=== PATIENT | female | born 1950 | race Caucasian/White ===

== ENCOUNTER 2020-07-12 09:06 | Outpatient (CLI) | payer MEDICARE, BC | END 2020-07-12 09:07 | disposition home or self-care (01) | LOC: COV 09:06 | PROVIDERS: ATTEND Family Medicine | DX: Z20.828 Contact with and (suspected) exposure to other viral communicable diseases (principal) ==

== ENCOUNTER 2021-06-27 08:34 | Outpatient (CLI) | payer MEDICARE, BC ==
--- NOTE | 2021-06-27 09:02 | XRAY Report ---
PROCEDURE: Shoulder 3 View RT INDICATIONS: RIGHT SHOULDER PAIN TECHNIQUE: 3 views of the shoulder were acquired. COMPARISON: None. FINDINGS: Bones: No fractures or dislocations. No suspicious bony lesions. Visualized ribs appear intact. J oint space narrowing and periarticular osteophyte formation at the acromioclavicular and glenohumeral joints, indicating osteoarthritis. Well-corticated bony fragment projects over the inferior aspect o f the glenohumeral joint. Soft tissues: No suspicious soft tissue calcifications. IMPRESSION: 1. Acromioclavicular and glenohumeral joint osteoarthritis. 2. Findings suggestive of an intra-articular loose body. This could be further assessed with MRI arth rography, if clinically indicated. 3. No acute fracture. No osseous lesion. If symptoms and/or clinical suspicion for pathology continue , further assessment with repeat plain films, or advanced imaging (e.g., CT, MRI, or bone scan) is re commended for further assessment. Reviewed by: Honorio Reyes MD on 06/27/2021 9:01 AM PDT Approved by: Honorio Reyes MD on 06/27/2021 9:01 AM PDT Station ID: [id number]
== END 2021-06-27 23:59 | disposition home or self-care (01) ==
LOC: DI.S 08:34
PROVIDERS: ATTEND Physician Assistant Medical
DX: M19.011 Primary osteoarthritis, right shoulder (principal)

== ENCOUNTER 2021-07-06 08:17 | Outpatient (CLI) | payer MEDICARE, BC | END 2021-07-06 08:18 | disposition critical access hospital (66) | LOC: EMS 08:17 | DX: R10.9 Unspecified abdominal pain (principal); R11.0 Nausea; R06.02 Shortness of breath | CPT/HCPCS: A0425; A0427 ==

== ENCOUNTER 2021-07-06 08:51 | Emergency (ER) | payer MEDICARE, BC ==
[2021-07-06] MEDS ORDERED: MAG HYDROX/AL HYDROX/SIMETH 30 ML UDC PO STA (09:03)
[2021-07-06] MEDS ORDERED: LIDOCAINE VISCOUS 2% 15 ML UDC MM STA (09:03)
[2021-07-06] MEDS ORDERED: HYDROmorphone 1 MG/ML CARPUJECT IVP STA (09:03)
--- NOTE | 2021-07-06 09:04 | ED Physician Documentation ---
PD HPI ABD PAIN - Stated complaint Stated Complaint: ABD PX - Chief complaint Chief Complaint: Abd Pain - History obtained from History obtained from: Patient - History of Present Illness Timing - onset: How many hours ago (3), Today Timing - duration: Hours (3) Timing - details: Abrupt onset, Still present Quality: Cramping, Aching, Pain Location: RUQ, Epigastric Radiation: Upper back. No: Left flank, Right flank Associated symptoms: Nausea. No: Fever, Vomiting, Diarrhea Similar symptoms before: Has not had sx before Recently seen: Not recently seen Review of Systems Constitutional: denies: Fever, Chills Nose: denies: Rhinorrhea / runny nose, Congestion Throat: denies: Sore throat Respiratory: denies: Cough GI: reports: Abdominal Pain, Nausea. denies: Vomiting, Diarrhea Musculoskeletal: denies: Neck pain, Back pain PD PAST MEDICAL HISTORY - Past Medical History Cardiovascular: None GI: Other (esophageal irritation during DUNG for ablation. ) - Present Medications Home Medications: Ambulatory Orders Medication Instructions Recorded Confirmed Alendronate [Fosamax] 70 mg PO Q7D 07/06/21 07/06/21 Apixaban [Eliquis] 5 mg PO BID 07/06/21 07/06/21 FLUoxetine [PROzac] 5 mg PO DAILY 07/06/21 07/06/21 Lidocaine Viscous 2% [Xylocaine 5 ml PO Q4H PRN #100 ml 07/06/21 Viscous 2%] Metoprolol Succinate [Kapspargo 25 mg PO DAILY 07/06/21 07/06/21 Sprinkle] Omeprazole [PriLOSEC] 20 mg PO DAILY 30 Days #30 cap 07/06/21 Zolpidem Tartrate [Ambien] 10 mg PO HS PRN 07/06/21 07/06/21 - Allergies Allergies/Adverse Reactions: Allergies Allergy/AdvReac Type Severity Reaction Status Date / Time No Known Drug Allergies Allergy Verified 07/06/21 09:04 PD ED PE NORMAL - Vitals Vital signs reviewed: Yes - General General: Alert and oriented X 3, No acute distress, Well developed/nourished - HEENT HEENT: Moist mucous membranes, Pharynx benign - Neck Neck: Supple, no meningeal sign, No adenopathy - Cardiac Cardiac: RRR, No murmur - Respiratory Respiratory: Clear bilaterally - Abdomen Abdomen: Normal bowel sounds, Soft, Non distended, No organomegaly, Other (tender epigastric area without guarding nor percussion tender. ) - Derm Derm: Normal color, Warm and dry - Neuro Neuro: Alert and oriented X 3, No motor deficit, Normal speech Results - Vitals Vitals: Oxygen O2 Source Room air - Labs Labs: Laboratory Tests 07/06/21 07/06/21 09:15 09:15 WBC 7.9 RBC 4.07 L Hgb 12.9 Hct 38.1 MCV 93.6 MCH 31.7 H MCHC 33.9 RDW 12.6 Plt Count 279 MPV 9.3 Neut # (Auto) 6.3 Lymph # (Auto) 1.0 L [place] # (Auto) 0.5 Eos # (Auto) 0.1 Baso # (Auto) 0.0 Absolute Nucleated RBC 0.00 Nucleated RBC % 0.0 Sodium 131 L Potassium 4.2 Chloride 97 L Carbon Dioxide 24 Anion Gap 10.0 BUN 15 Creatinine 0.4 Estimated GFR (MDRD) 157 Glucose 110 H Calcium 9.5 Total Bilirubin 1.5 H AST 148 H ALT 72 H Alkaline Phosphatase 68 Total Protein 6.8 Albumin 4.2 Globulin 2.6 Albumin/Globulin Ratio 1.6 Lipase 35 - Rads (name of study) abd U/S Radiology: Prelim report reviewed (normal gallbladder and RUQ U/S), See rad report PD MEDICAL DECISION MAKING - ED course Complexity details: re-evaluated patient (improved quite well with GI cocktail.), considered differential, d/w patient Departure - Departure Disposition: 01 Home, Self Care Clinical Impression: Acute upper abdominal pain Gastritis Qualifiers: Gastritis type: unspecified gastritis Chronicity: acute Gastritis bleeding: without bleeding Qualified Code(s): K29.00 - Acute gastritis without bleeding Condition: Stable Record reviewed to determine appropriate education?: Yes Instructions: ED Gastritis Follow-Up: ELMER MELARA MD [Primary Care Provider] - Prescriptions: Omeprazole [PriLOSEC] 20 mg PO DAILY 30 Days #30 cap Lidocaine Viscous 2% [Xylocaine Viscous 2%] 5 ml PO Q4H PRN #100 ml PRN Reason: Pain Comments: This does sound most likely to be an irritation of the stomach (gastritis). I would resume your Prilosec daily for at least a month more likely two. Consider some antacids such as Maalox or Mylanta a few times daily for the next few days. Use it as needed for stomach pains and you can add the lidocaine to it if needed as well. Your ultrasound showed some gallstones but no signs of acute inflammation of the gallbladder. Your common bile duct was slightly elevated though no stones seen in it. Of another possibility for your pain episode today was some sludging or temporary blockage of the bile duct. Also consider gallbladder spasm. However the gastritis seems the most likely given the resolution of it with the "GI cocktail". Follow-up with your primary care if recurrent episodes despite the medications. Tylenol if needed for mild pains. Return to the ER if significantly worse again. Discharge Date/Time: 07/06/21 11:11
[2021-07-06 09:30] LABS: BASOPHILS % (AUTO) 0.4 %; EOSINOPHILS # (AUTO) 0.1 10^3/uL (0.0-0.7); EOSINOPHILS % (AUTO) 0.9 %; HCT - HEMATOCRIT 38.1 % (37.0-47.0); HGB - HEMOGLOBIN 12.9 g/dL (12.0-16.0); LYMPHOCYTES % (AUTO) 12.4 %; MEAN CORPUSCULAR HEMOGLOBIN 31.7 pg (27.0-31.0); MEAN CORPUSCULAR HGB CONC 33.9 g/dL (32.0-36.0); MEAN CORPUSCULAR VOLUME 93.6 fL (81.0-99.0); MEAN PLATELET VOLUME 9.3 fL (7.9-10.8); MONOCYTES # (AUTO) 0.5 10^3/uL (0.0-1.0); MONOCYTES % (AUTO) 6.1 %; NEUTROPHILS # (AUTO) 6.3 10^3/uL (1.5-6.6); NEUTROPHILS % (AUTO) 79.8 %; PLT - PLATELET COUNT 279 10^3/uL (130-450); RED BLOOD COUNT 4.07 10^6/uL (4.20-5.40); RED CELL DISTRIBUTION WIDTH 12.6 % (12.0-15.0); WHITE BLOOD COUNT 7.9 x10^3/uL (4.8-10.8)
[2021-07-06 09:41] LABS: ALBUMIN 4.2 g/dL (3.2-5.5); ALBUMIN/GLOBULIN RATIO 1.6 (1.0-2.2); BILIRUBIN,TOTAL 1.5 mg/dL (0.2-1.0); CALCIUM 9.5 mg/dL (8.5-10.3); CREATININE 0.4 mg/dL (0.4-1.0); POTASSIUM 4.2 mmol/L (3.5-5.0); TOTAL PROTEIN 6.8 g/dL (6.7-8.2)
--- NOTE | 2021-07-06 10:36 | Ultrasound Report ---
PROCEDURE: Abdomen Limited INDICATIONS: RUQ/epigastric pain this morning TECHNIQUE: Real-time scanning was performed of the abdominal and retroperitoneal organs, with image documentatio n. COMPARISON: None. FINDINGS: Liver: Liver is normal in size and with hepatic steatosis. Gallbladder: Gallbladder demonstrates multiple areas of increased echogenicity. Wall thickness is wit hin normal limits measuring 2.1 cm. Biliary ducts: Intrahepatic bile ducts are non-dilated. Extrahepatic bile duct caliber measures 10. 8 mm. Normal is 6-7 mm or less in diameter, or 10 mm or less post-cholecystectomy. No stone is iden tified. Pancreas: Visualized portions of the pancreas are sonographically normal. Kidneys: Right kidney measures 10.6 cm long. No hydronephrosis or nephrolithiasis. No solid masses . IMPRESSION: 1. Cholelithiasis without wall thickening. 2. Mild prominence of the common bile duct, overall nonspecific. No obstructing stone is identified. However, if this remains of concern, MRCP is recommended. Reviewed by: Genet Castorena MD on 07/06/2021 10:34 AM PDT Approved by: Genet Castorena MD on 07/06/2021 10:34 AM PDT Station ID: [id number]
[2021-07-06 11:11] VITALS: BP 123/78
== END 2021-07-06 11:11 | disposition home or self-care (01) ==
LOC: EDBD → ED 08:51 → MERGE 08:51 → ED 11:11
DX: K29.00 Acute gastritis without bleeding (principal)
CPT/HCPCS: 36415; 76705; 80053; 83690; 85025; 96374; 99284; A9270; J1170

== ENCOUNTER 2024-04-13 13:59 | Emergency (ER) | payer MEDICARE, BC ==
[2024-04-13] MEDS ORDERED: LIDOCAINE 1%-EPI 1:100000 20 ML MDV ONE (14:11)
[2024-04-13 14:14] VITALS: O2SAT 98
[2024-04-13] MEDS: LIDOCAINE 1%-EPI 1:100000 20 ML MDV SUBQ STA (14:22)
[2024-04-13] MEDS: BACITRACIN ZINC OINT 1 PACKET TOP STA (15:03)
--- NOTE | 2024-04-13 15:12 | ED Physician Documentation ---
History of Present Illness - Stated complaint Stated Complaint: NOSEBLEED - Chief complaint Chief Complaint: Wound - History obtained from History obtained from: Patient - History of Present Illness Timing: Today Pain level max: 0 Pain level now: 0 - Additonal information Additional information: Patient is a 73-year-old female who presents to the emergency department with bleeding from a wound on the face. 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 She had this performed in [place]. She lives in [place]. Today she stated that the wound opened and started bleeding profusely. No nonnormal was called and she was brought here. Patient is on Eliquis. Not having any pain. Review of Systems Constitutional: denies: Fever, Chills Skin: denies: Rash Musculoskeletal: denies: Neck pain, Back pain PD PAST MEDICAL HISTORY - Past Medical History Cardiovascular: None Respiratory: None Neuro: None Endocrine/Autoimmune: None GI: Other [employer] TECHNICIAN: None : None HEENT: Chronic vision loss Psych: None Musculoskeletal: Osteoarthritis Derm: Other Other Past Medical History: Melanoma L nare - Past Surgical History Past Surgical History: Yes Derm: Skin cancer surgery - Present Medications Home Medications: Ambulatory Orders Medication Instructions Recorded Confirmed Apixaban [Eliquis] 5 mg PO BID 07/06/21 04/13/24 Zolpidem Tartrate [Ambien] 10 mg PO HS PRN 07/06/21 04/13/24 Multivitamin 1 tab PO DAILY 04/13/24 04/13/24 - Allergies Allergies/Adverse Reactions: Allergies Allergy/AdvReac Type Severity Reaction Status Date / Time No Known Drug Allergies Allergy Verified 07/06/21 09:04 - Social History Does the pt smoke?: No Smoking Status: Never smoker Does the pt drink ETOH?: No Does the pt have substance abuse?: No - Immunizations Immunizations are current?: Yes - POLST Patient has POLST: No PD ED PE NORMAL - Vitals Vital signs reviewed: Yes - General General: Alert and oriented X 3, No acute distress - HEENT HEENT: Moist mucous membranes, Other (Small wound just below the left nare on the upper lip, spurting blood.) - Neck Neck: Supple, no meningeal sign - Cardiac Cardiac: RRR - Respiratory Respiratory: No respiratory distress - Derm Derm: Warm and dry - Neuro Neuro: Alert and oriented X 3 - Psych Psych: Normal mood, Normal affect Results - Vitals Vitals: Vital Signs - 24 hr 04/13/24 04/13/24 14:02 15:05 Temperature 36.7 C Heart Rate 76 74 Respiratory 18 18 Rate Blood Pressure 132/97 H 127/78 O2 Saturation 98 98 Oxygen O2 Source Room air Procedures - Laceration (location) face, L upper lip Length in cm: 1 Wound type: Clean Anesthesia: Lidocaine 1% with epi Wound preparation: Irrigated copiously NS, Wound explored, To the base Skin layer closure: Nylon, Interrupted, Size #-0 - enter number (5), Sutures - enter # (3) Other: Patient tolerated well, No complications, Neurovascular intact PD Medical Decision Making - ED course Complexity details: reviewed results, re-evaluated patient, considered differential, d/w patient ED course: Patient had a recent melanoma removed from her left upper lip. The wound opened today and has arterial bleeding. Lidocaine with epinephrine was instilled into the wound and then the wound was oversewn with 3 sutures. Excellent hemostasis achieved. No further bleeding in the emergency department. Patient is on Eliquis. Patient was counseled regarding wound care and need for close follow- up with her surgeon. Patient is not lightheaded or dizzy, no indication for laboratory testing at this time. Patient counseled regarding signs and symptoms for which I believe and urgent re-evaluation would be necessary. Patient with good understanding of and agreement to plan and is comfortable going home at this time This document was made in part using voice recognition software. While efforts are made to proofread this document, sound alike and grammatical errors may occur. Departure - Departure Disposition: 01 Home, Self Care Clinical Impression: Postoperative bleeding from incision Condition: Good Instructions: ED Wound Check Post Op Bleeding Follow-Up: Your, doctor in 5 days [Other] Comments: Please contact the provider who did your surgery and let them know that the wound opened and stitches had to be placed back into the wound today. They will need to follow you closely in the office to ensure that you do not need any other interventions. Sutures should be removed in about 5 to 7 days. Please return if you worsen, be advised that we do not have ENT, plastic surgery or facial surgery here. The closest location with those services to you [facility] be [facility]. Forms: PCP List Discharge Date/Time: 04/13/24 15:30
[2024-04-13 15:41] VITALS: BP 127/78
== END 2024-04-13 15:30 | disposition home or self-care (01) ==
LOC: EDUNIT# → ED 13:59
DX: L76.22 Postprocedural hemorrhage of skin and subcutaneous tissue following other procedure (principal); Z85.820 Personal history of malignant melanoma of skin; Z79.01 Long term (current) use of anticoagulants
CPT/HCPCS: 12011; 99283; A9270